=== PATIENT | female | born 1990 | race Caucasian/White ===

== ENCOUNTER 2019-02-17 22:34 | Outpatient (CLI) | payer OTHER ==
[2019-02-17 23:41] LABS: ADD UMIC YES; UR ASCORBIC ACID NEGATIVE (NEGATIVE); UR BILIRUBIN (Dip) NEGATIVE (NEGATIVE); UR BLOOD (Dip) 2+ mg/dL (NEGATIVE); UR CLARITY CLEAR (CLEAR); UR COLOR STRAW (YELLOW); UR GLUCOSE (Dip) NEGATIVE (NEGATIVE); UR KETONES (Dip) NEGATIVE (NEGATIVE); UR LEUKOCYTE ESTERASE (Dip) NEGATIVE Leu/ul (NEGATIVE); UR NITRITE (Dip) NEGATIVE (NEGATIVE); UR RBC 1 /HPF (0-5); UR SPECIFIC GRAVITY (Dip) 1.008 (1.003-1.030); UR TOTAL PROTEIN (Dip) NEGATIVE (NEGATIVE); UR UROBILINOGEN (Dip) NEGATIVE (NEGATIVE); UR WBC 2 /HPF (0-5)
[2019-02-18] MEDS: ACETAMINOPHEN 500 MG TAB PO (00:07)
== END 2019-02-18 00:55 | disposition home or self-care (01) ==
LOC: OBT 02-18 00:55 → L-D 22:34
DX: O26.892 Other specified pregnancy related conditions, second trimester (principal); R10.2 Pelvic and perineal pain; Z3A.20 20 weeks gestation of pregnancy
CPT/HCPCS: 76817; 81001; 87086

== ENCOUNTER 2019-06-11 23:14 | Inpatient (IN) | payer OTHER ==
[2019-06-12] MEDS: BUTORPHANOL 2 MG INJ IM (00:30)
[2019-06-12 00:36] LABS: ADD UMIC YES; UR ASCORBIC ACID NEGATIVE (NEGATIVE); UR BACTERIA FEW /HPF (NONE SEEN); UR BILIRUBIN (Dip) NEGATIVE (NEGATIVE); UR BLOOD (Dip) 1+ mg/dL (NEGATIVE); UR CLARITY CLEAR (CLEAR); UR COLOR AMBER (YELLOW); UR GLUCOSE (Dip) 1+ mg/dL (NEGATIVE); UR KETONES (Dip) NEGATIVE (NEGATIVE); UR LEUKOCYTE ESTERASE (Dip) NEGATIVE Leu/ul (NEGATIVE); UR MUCUS MANY /HPF (NONE SEEN); UR NITRITE (Dip) NEGATIVE (NEGATIVE); UR RBC 5 /HPF (0-5); UR SQUAMOUS EPITHELIAL CELL FEW /HPF (FEW); UR TOTAL PROTEIN (Dip) 1+ mg/dl (NEGATIVE); UR UROBILINOGEN (Dip) 2+ mg/dL (NEGATIVE); UR WBC 2 /HPF (0-5)
[2019-06-12 02:23] LABS: ADD MAN DIFF? NO
[2019-06-12 02:25] LABS: BASOPHILS % 0.1 % (0.0-2.0); EOSINOPHILS # 0.1 10^3/ul (0.0-0.5); EOSINOPHILS % 0.7 % (0.0-7.0); HEMATOCRIT 29.8 % (37.0-47.0); HEMOGLOBIN 9.8 g/dl (12.0-16.0); LYMPHOCYTES # 1.5 10^3/ul (0.8-2.9); LYMPHOCYTES % 19.7 % (15.0-51.0); MEAN CORPUSCULAR HEMOGLOBIN 27.9 pg (29.0-33.0); MEAN CORPUSCULAR HGB CONC 32.9 g/dl (32.0-37.0); MEAN CORPUSCULAR VOLUME 84.9 fl (82.0-101.0); MEAN PLATELET VOLUME 9.3 fl (7.4-10.4); MONOCYTE # 0.7 10^3/ul (0.3-0.9); MONOCYTES % 8.5 % (0.0-11.0); NEUTROPHIL # 5.4 10^3/ul (1.6-7.5); NEUTROPHILS % 70.6 % (39.0-77.0); PLATELET COUNT 260 10^3/UL (140-415); RED BLOOD COUNT 3.51 10^6/ul (4.20-5.40); RED CELL DISTRIBUTION WIDTH 13.7 % (11.5-14.5)
[2019-06-12 02:25] LABS: WHITE BLOOD COUNT 7.6 10^3/ul (4.8-10.8)
[2019-06-12 02:49] LABS: ALANINE AMINOTRANSFERASE 22 IU/L (13-69); ALBUMIN 3.2 g/dl (3.3-4.9); ALKALINE PHOSPHATASE 118 IU/L (42-121); ANION GAP 6 (5-13); ASPARTATE AMINO TRANSFERASE 20 IU/L (15-46); BILIRUBIN,INDIRECT 0.3 mg/dl (0-1.1); BILIRUBIN,TOTAL 0.3 mg/dl (0.2-1.3); BLOOD UREA NITROGEN 8 mg/dl (7-20); CALCIUM 8.7 mg/dl (8.4-10.2); CARBON DIOXIDE 22 mmol/L (21-31); CHLORIDE 111 mmol/L (97-110); CREATININE 0.36 mg/dl (0.44-1.00); Estimated GFR > 60 mL/min (>60); GLUCOSE 112 mg/dl (70-220); POTASSIUM 3.6 mmol/L (3.5-5.1); SODIUM 139 mmol/L (135-144); TOTAL PROTEIN 6.4 g/dl (6.1-8.1); URIC ACID 4.2 mg/dl (3.1-7.9)
[2019-06-12 02:52] LABS: INR 0.93; PARTIAL THROMBOPLASTIN TIME 30.9 Sec (23.0-35.0); PROTIME 12.6 Sec (11.9-14.9)
[2019-06-12] MEDS: AL HYDROX/MG HYDROX/SIMETH 30 ML CUP PO ×3 (03:40→19:28)
[2019-06-12] MEDS: LACTATED RINGER'S 1,000 ML IV ×3 (09:38→19:29)
[2019-06-12 11:49] LABS: ADD MAN DIFF? NO
[2019-06-12 11:52] LABS: BASOPHILS % 0.1 % (0.0-2.0); EOSINOPHILS # 0.1 10^3/ul (0.0-0.5); EOSINOPHILS % 0.9 % (0.0-7.0); HEMATOCRIT 28.6 % (37.0-47.0); HEMOGLOBIN 9.4 g/dl (12.0-16.0); LYMPHOCYTES # 1.5 10^3/ul (0.8-2.9); LYMPHOCYTES % 22.7 % (15.0-51.0); MEAN CORPUSCULAR HEMOGLOBIN 28.2 pg (29.0-33.0); MEAN CORPUSCULAR HGB CONC 32.9 g/dl (32.0-37.0); MEAN CORPUSCULAR VOLUME 85.9 fl (82.0-101.0); MEAN PLATELET VOLUME 9.9 fl (7.4-10.4); MONOCYTE # 0.5 10^3/ul (0.3-0.9); MONOCYTES % 6.7 % (0.0-11.0); NEUTROPHIL # 4.7 10^3/ul (1.6-7.5); NEUTROPHILS % 69.2 % (39.0-77.0); PLATELET COUNT 249 10^3/UL (140-415); RED BLOOD COUNT 3.33 10^6/ul (4.20-5.40); RED CELL DISTRIBUTION WIDTH 13.7 % (11.5-14.5)
[2019-06-12 11:52] LABS: WHITE BLOOD COUNT 6.8 10^3/ul (4.8-10.8)
[2019-06-12 12:11] LABS: INR 0.93; PROTIME 12.6 Sec (11.9-14.9)
[2019-06-12 12:12] LABS: ALANINE AMINOTRANSFERASE 21 IU/L (13-69); ALBUMIN 2.9 g/dl (3.3-4.9); ALBUMIN/GLOBULIN RATIO 0.96; ALKALINE PHOSPHATASE 120 IU/L (42-121); ANION GAP 4 (5-13); ASPARTATE AMINO TRANSFERASE 20 IU/L (15-46); BILIRUBIN,INDIRECT 0.4 mg/dl (0-1.1); BILIRUBIN,TOTAL 0.4 mg/dl (0.2-1.3); BLOOD UREA NITROGEN 8 mg/dl (7-20); CALCIUM 8.3 mg/dl (8.4-10.2); CARBON DIOXIDE 23 mmol/L (21-31); CHLORIDE 112 mmol/L (97-110); CREATININE 0.34 mg/dl (0.44-1.00); Estimated GFR > 60 mL/min (>60); GLUCOSE 89 mg/dl (70-220); PARTIAL THROMBOPLASTIN TIME 31.6 Sec (23.0-35.0); POTASSIUM 3.9 mmol/L (3.5-5.1); SODIUM 139 mmol/L (135-144); TOTAL PROTEIN 5.9 g/dl (6.1-8.1); URIC ACID 3.9 mg/dl (3.1-7.9)
[2019-06-12] MEDS: DOCUSATE SODIUM 100 MG CAP PO ×2 (12:58→21:12)
[2019-06-12] MEDS: PRENATAL VITAMIN PO (12:58)
[2019-06-12] MEDS: BUTORPHANOL 2 MG INJ IV (13:07)
[2019-06-13] MEDS: LACTATED RINGER'S 1,000 ML IV ×2 (03:13→10:41)
[2019-06-13 06:23] LABS: ADD MAN DIFF? NO
[2019-06-13 06:30] LABS: BASOPHILS % 0.3 % (0.0-2.0); EOSINOPHILS # 0.1 10^3/ul (0.0-0.5); EOSINOPHILS % 0.9 % (0.0-7.0); HEMATOCRIT 27.9 % (37.0-47.0); HEMOGLOBIN 9.3 g/dl (12.0-16.0); LYMPHOCYTES # 1.6 10^3/ul (0.8-2.9); MEAN CORPUSCULAR HEMOGLOBIN 28.5 pg (29.0-33.0); MEAN CORPUSCULAR HGB CONC 33.3 g/dl (32.0-37.0); MEAN CORPUSCULAR VOLUME 85.6 fl (82.0-101.0); MEAN PLATELET VOLUME 9.7 fl (7.4-10.4); MONOCYTE # 0.5 10^3/ul (0.3-0.9); MONOCYTES % 7.1 % (0.0-11.0); NEUTROPHIL # 4.6 10^3/ul (1.6-7.5); NEUTROPHILS % 68.1 % (39.0-77.0); PLATELET COUNT 238 10^3/UL (140-415); RED BLOOD COUNT 3.26 10^6/ul (4.20-5.40); RED CELL DISTRIBUTION WIDTH 13.5 % (11.5-14.5)
[2019-06-13 06:30] LABS: WHITE BLOOD COUNT 6.7 10^3/ul (4.8-10.8)
[2019-06-13 06:45] LABS: GTT FASTING URINE NEGATIVE (NEGATIVE)
[2019-06-13 06:52] LABS: GTT FASTING GLUCOSE 105 mg/dl (70-110)
[2019-06-13 06:56] LABS: ALANINE AMINOTRANSFERASE 26 IU/L (13-69); ALBUMIN 2.8 g/dl (3.3-4.9); ALBUMIN/GLOBULIN RATIO 0.93; ALKALINE PHOSPHATASE 106 IU/L (42-121); ANION GAP 5 (5-13); ASPARTATE AMINO TRANSFERASE 18 IU/L (15-46); BILIRUBIN,INDIRECT 0.3 mg/dl (0-1.1); BILIRUBIN,TOTAL 0.3 mg/dl (0.2-1.3); BLOOD UREA NITROGEN 6 mg/dl (7-20); CALCIUM 8.6 mg/dl (8.4-10.2); CARBON DIOXIDE 23 mmol/L (21-31); CHLORIDE 109 mmol/L (97-110); CREATININE 0.35 mg/dl (0.44-1.00); Estimated GFR > 60 mL/min (>60); GLUCOSE 106 mg/dl (70-220); POTASSIUM 3.8 mmol/L (3.5-5.1); SODIUM 137 mmol/L (135-144); TOTAL PROTEIN 5.8 g/dl (6.1-8.1)
[2019-06-13 08:13] LABS: GLUCOSE 1 HOUR 169 mg/dl
[2019-06-13] MEDS: PRENATAL VITAMIN PO (08:44)
[2019-06-13] MEDS: DOCUSATE SODIUM 100 MG CAP PO (08:44)
[2019-06-13 10:33] LABS: COLLECTION PERIOD 24 hrs
[2019-06-13 10:44] LABS: ADD UMIC NO; UR ASCORBIC ACID NEGATIVE (NEGATIVE); UR BILIRUBIN (Dip) NEGATIVE (NEGATIVE); UR BLOOD (Dip) NEGATIVE (NEGATIVE); UR CLARITY CLEAR (CLEAR); UR COLOR YELLOW (YELLOW); UR GLUCOSE (Dip) NEGATIVE (NEGATIVE); UR KETONES (Dip) NEGATIVE (NEGATIVE); UR LEUKOCYTE ESTERASE (Dip) NEGATIVE Leu/ul (NEGATIVE); UR NITRITE (Dip) NEGATIVE (NEGATIVE); UR SPECIFIC GRAVITY (Dip) 1.016 (1.003-1.030); UR TOTAL PROTEIN (Dip) NEGATIVE (NEGATIVE); UR UROBILINOGEN (Dip) NEGATIVE (NEGATIVE)
[2019-06-13 12:12] LABS: 24HR URINE TOTAL PROTEIN 236.5 mg/24hrs (42.0-225.0); VOLUME 2150 mls
[2019-06-13 12:14] LABS: COLLECTION PERIOD 24 hrs; CREATININE CLEARANCE 201.9 mls/min (84.0-162.0); CREATININE,URINE RANDOM 47.33 mg/dl (20-320); SCRET 0.35 mg/dl (0.44-1.00); VOLUME 2150 ml/24hrs
[2019-06-13] MEDS: SOD FERRIC GLUC COMPLX 125 MG in SOD CHLORIDE 0.9% 100 ML IVPB (12:25)
[2019-06-13] MEDS ORDERED: SOD FERRIC GLUC COMPLX 125 MG in SOD CHLORIDE 0.9% 100 ML IVPB (12:30)
== END 2019-06-13 15:00 | disposition home or self-care (01) | DRG 833 ==
LOC: OBT 23:14 → L-D 23:15
DX: O26.893 Other specified pregnancy related conditions, third trimester (principal); R10.13 Epigastric pain; R51 Headache; O34.219 Maternal care for unspecified type scar from previous cesarean delivery; O60.03 Preterm labor without delivery, third trimester; Z3A.37 37 weeks gestation of pregnancy
CPT/HCPCS: 76705; 76818; 80053; 81001; 81003; 82575; 82951; 84156; 84560; 85025; 85384; 85610; 85730; 87086

== ENCOUNTER 2019-06-20 05:23 | Inpatient (IN) | payer OTHER ==
[2019-06-20] MEDS ORDERED: OXYTOCIN 30 UNITS/LR 500 ML IV ×3 (05:30→07:30)
[2019-06-20] MEDS ORDERED: CARBOPROST 250 MCG INJ IM ×2 (05:30→07:30)
[2019-06-20] MEDS ORDERED: CEFAZOLIN 2 GM/50 ML (PMX) 50 ML IVPB (05:30)
[2019-06-20] MEDS ORDERED: METHYLERGONOVINE 0.2 MG INJ IM ×2 (05:30→07:30)
[2019-06-20] MEDS ORDERED: MISOPROSTOL 200 MCG TAB PR ×2 (05:30→07:30)
[2019-06-20] MEDS: LACTATED RINGER'S 1,000 ML IV ×2 (05:45→21:39)
[2019-06-20 06:17] LABS: ADD MAN DIFF? NO
[2019-06-20 06:19] LABS: BASOPHILS % 0.2 % (0.0-2.0); EOSINOPHILS # 0.1 10^3/ul (0.0-0.5); EOSINOPHILS % 0.6 % (0.0-7.0); HEMATOCRIT 31.5 % (37.0-47.0); HEMOGLOBIN 10.3 g/dl (12.0-16.0); LYMPHOCYTES # 1.6 10^3/ul (0.8-2.9); LYMPHOCYTES % 18.3 % (15.0-51.0); MEAN CORPUSCULAR HEMOGLOBIN 28.3 pg (29.0-33.0); MEAN CORPUSCULAR HGB CONC 32.7 g/dl (32.0-37.0); MEAN CORPUSCULAR VOLUME 86.5 fl (82.0-101.0); MONOCYTE # 0.6 10^3/ul (0.3-0.9); MONOCYTES % 7.1 % (0.0-11.0); NEUTROPHIL # 6.3 10^3/ul (1.6-7.5); NEUTROPHILS % 73.3 % (39.0-77.0); PLATELET COUNT 305 10^3/UL (140-415); RED BLOOD COUNT 3.64 10^6/ul (4.20-5.40)
[2019-06-20 06:19] LABS: WHITE BLOOD COUNT 8.6 10^3/ul (4.8-10.8)
[2019-06-20 06:38] LABS: INR 0.92; PROTIME 12.5 Sec (11.9-14.9)
[2019-06-20 06:39] LABS: PARTIAL THROMBOPLASTIN TIME 29.7 Sec (23.0-35.0)
[2019-06-20 07:10] LABS: HEPATITIS B SURFACE ANTIGEN NEGATIVE (NEGATIVE)
[2019-06-20] MEDS ORDERED: morphine SULFATE/PF (10 MG/10 ML) INJ (07:19)
[2019-06-20] MEDS ORDERED: FENTAnyl 50 MCG/ML VIAL ×3 (07:19→08:31)
[2019-06-20] MEDS ORDERED: METOCLOPRAMIDE 10 MG INJ (07:20)
[2019-06-20] MEDS ORDERED: OXYTOCIN 10 UNIT INJ (07:20)
[2019-06-20] MEDS ORDERED: NA PHOSPHATE/BIPHOS 133 ML ENEMA PR (07:30)
[2019-06-20] MEDS ORDERED: LANOLIN HPA 1 PKT TOP (07:30)
[2019-06-20] MEDS ORDERED: METHYLERGONOVINE 0.2 MG TAB PO (07:30)
[2019-06-20] MEDS ORDERED: KETOROLAC 30 MG INJ IV (07:30)
[2019-06-20 07:53] LABS: ADD UMIC YES; UR ASCORBIC ACID NEGATIVE (NEGATIVE); UR BACTERIA FEW /HPF (NONE SEEN); UR BILIRUBIN (Dip) NEGATIVE (NEGATIVE); UR BLOOD (Dip) 1+ mg/dL (NEGATIVE); UR CLARITY SLIGHTLY CLOUDY (CLEAR); UR COLOR YELLOW (YELLOW); UR GLUCOSE (Dip) NEGATIVE (NEGATIVE); UR KETONES (Dip) NEGATIVE (NEGATIVE); UR LEUKOCYTE ESTERASE (Dip) NEGATIVE Leu/ul (NEGATIVE); UR MUCUS FEW /HPF (NONE SEEN); UR NITRITE (Dip) NEGATIVE (NEGATIVE); UR RBC 1 /HPF (0-5); UR SQUAMOUS EPITHELIAL CELL FEW /HPF (FEW); UR TOTAL PROTEIN (Dip) NEGATIVE (NEGATIVE); UR UROBILINOGEN (Dip) 1+ mg/dL (NEGATIVE); UR WBC 3 /HPF (0-5)
[2019-06-20] MEDS ORDERED: LABETALOL HCL 20MG INJ IV (08:00)
[2019-06-20] MEDS ORDERED: ALBUTEROL 0.083% (NEB) 2.5 MG/3 ML AMP HHN (08:00)
[2019-06-20] MEDS ORDERED: EPHEDrine 25 MG/5 ML SYG IV (08:00)
[2019-06-20] MEDS ORDERED: TRIMETHOBENZAMIDE 100 MG/ML VIAL IM ×2 (08:00)
[2019-06-20] MEDS ORDERED: morphine 2 MG INJ IV ×2 (08:00)
[2019-06-20] MEDS ORDERED: DIPHENHYDRAMINE 50 MG INJ IV ×2 (08:00)
[2019-06-20] MEDS ORDERED: NALOXONE (0.4 MG/ML) INJ IV (08:00)
[2019-06-20] MEDS ORDERED: NALBUPHINE HCL (10 MG/1 ML) INJ IV (08:00)
[2019-06-20] MEDS ORDERED: FENTAnyl 50 MCG/ML VIAL IV ×3 (08:00)
[2019-06-20] MEDS ORDERED: IPRATROPIUM (NEB) 0.5 MG/2.5 ML AMP HHN (08:00)
[2019-06-20] MEDS ORDERED: hydrALAzine 20 MG INJ IV (08:00)
[2019-06-20] MEDS ORDERED: ONDANSETRON 4 MG INJ IV ×2 (08:00)
[2019-06-20] MEDS ORDERED: MEPERIDINE 25 MG INJ IV (08:00)
[2019-06-20] MEDS ORDERED: KETOROLAC 30 MG INJ (08:03)
[2019-06-20] MEDS: SENNA/DOCUSATE NA (8.6MG/50MG) TAB PO ×2 (09:00→21:40)
[2019-06-20] MEDS: OXYTOCIN 30 UNITS/LR 500 ML IV (10:44)
[2019-06-20] MEDS: KETOROLAC 30 MG INJ IV ×2 (10:45→22:23)
[2019-06-20] MEDS: CEFAZOLIN 2 GM/50 ML (PMX) 50 ML IVPB ×2 (14:24→21:39)
[2019-06-20 22:15] LABS: RAPID PLASMA REAGIN NONREACTIVE (NR)
[2019-06-21] MEDS: CEFAZOLIN 2 GM/50 ML (PMX) 50 ML IVPB (05:43)
[2019-06-21] MEDS: IBUPROFEN 800 MG TAB PO ×3 (06:00→21:39)
[2019-06-21] MEDS: LACTATED RINGER'S 1,000 ML IV (06:49)
[2019-06-21] MEDS: HYDROCODONE/APAP (5/325) TAB PO ×2 (08:05→12:09)
[2019-06-21 09:09] LABS: ADD MAN DIFF? NO
[2019-06-21 09:13] LABS: BASOPHILS % 0.1 % (0.0-2.0); EOSINOPHILS # 0.1 10^3/ul (0.0-0.5); HEMATOCRIT 26.1 % (37.0-47.0); HEMOGLOBIN 8.4 g/dl (12.0-16.0); LYMPHOCYTES % 11.5 % (15.0-51.0); MEAN CORPUSCULAR HEMOGLOBIN 27.9 pg (29.0-33.0); MEAN CORPUSCULAR HGB CONC 32.2 g/dl (32.0-37.0); MEAN CORPUSCULAR VOLUME 86.7 fl (82.0-101.0); MEAN PLATELET VOLUME 9.9 fl (7.4-10.4); MONOCYTE # 0.5 10^3/ul (0.3-0.9); MONOCYTES % 5.5 % (0.0-11.0); NEUTROPHIL # 7.2 10^3/ul (1.6-7.5); NEUTROPHILS % 81.3 % (39.0-77.0); PLATELET COUNT 232 10^3/UL (140-415); RED BLOOD COUNT 3.01 10^6/ul (4.20-5.40); RED CELL DISTRIBUTION WIDTH 14.5 % (11.5-14.5)
[2019-06-21 09:13] LABS: WHITE BLOOD COUNT 8.9 10^3/ul (4.8-10.8)
[2019-06-21] MEDS: SENNA/DOCUSATE NA (8.6MG/50MG) TAB PO ×2 (09:22→21:39)
[2019-06-21] MEDS: PRENATAL VITAMIN PO (09:22)
[2019-06-21] MEDS: FERROUS SULFATE (EC) 325 MG TAB PO (09:22)
[2019-06-22] MEDS: IBUPROFEN 800 MG TAB PO ×2 (05:44→13:38)
[2019-06-22] MEDS: PRENATAL VITAMIN PO (08:30)
[2019-06-22] MEDS: FERROUS SULFATE (EC) 325 MG TAB PO (08:31)
[2019-06-22] MEDS: SENNA/DOCUSATE NA (8.6MG/50MG) TAB PO (08:31)
[2019-06-22] MEDS: HYDROCODONE/APAP (5/325) TAB PO (08:31)
[2019-06-22] MEDS: DIPHTH/TET/ACEL PERTUSS (ADULT) 0.5 ML VIAL IM* (11:39)
[2019-06-22] MEDS: MEASLES,MUMPS,RUBELLA VACCINE INJ SC* (16:03)
== END 2019-06-22 16:59 | disposition home or self-care (01) | DRG 785 ==
LOC: L-D 05:23 → PP1 11:29
PROVIDERS: Obstetrics & Gynecology
PROC: 10D00Z1 Extraction of Products of Conception, Low, Open Approach (ICD-10-PCS; principal; 2019-06-20 07:30)
PROC: 0UB70ZZ Excision of Bilateral Fallopian Tubes, Open Approach (ICD-10-PCS; 2019-06-20 07:30)
DX: O34.211 Maternal care for low transverse scar from previous cesarean delivery (principal); O99.214 Obesity complicating childbirth; E66.01 Morbid (severe) obesity due to excess calories; O99.02 Anemia complicating childbirth; O14.04 Mild to moderate pre-eclampsia, complicating childbirth; Z3A.38 38 weeks gestation of pregnancy; Z37.0 Single live birth; Z30.2 Encounter for sterilization; Z23 Encounter for immunization
CPT/HCPCS: 81001; 85025; 85610; 85730; 86592; 86850; 86900; 86901; 87340; 88302; 90715; 99464